=== PATIENT | female | born 1930 | race Two or more races ===

== ENCOUNTER 2017-07-03 04:20 | Inpatient (IN) | payer BC, OTHER ==
[~2017-07-03] VITALS: Ht 172.7 cm; Wt 58.6 kg
--- NOTE | 2017-07-03 04:22 | NUR ---
PT BRIB LAFD ROM C/O OF GENERALIZED WEAKNESS WITH COUGH X 1 WEEK. PT A/O X 2, BREATHING EVEN/UNLABORED, NO C/O PAIN AT THIS TIME.
[2017-07-03 05:11] LABS: CALCIUM, SERUM 9.6 mg/dL (8.5-10.1); CARBON DIOXIDE 27 mmol/L (21-32); CHLORIDE 107 mmol/L (98-107); CREATININE 0.7 mg/dL (0.6-1.3); GLUCOSE 137 mg/dL (74-106); POTASSIUM 4.1 mmol/L (3.5-5.1); SODIUM SERUM 144 mmol/L (136-145); UREA NITROGEN, BLOOD 11 mg/dL (7-18)
[2017-07-03 05:19] LABS: TROPONIN I < 0.017 ng/mL (0.00-0.056)
[2017-07-03 05:23] LABS: BASOPHILS # (AUTO) 0.1 /CMM (0.0-0.2); BASOPHILS % (AUTO) 0.8 % (0.0-2.0); HEMATOCRIT 47 % (33-45); HEMOGLOBIN 16.4 g/dL (11.5-14.8); LYMPHOCYTES # (AUTO) 0.4 /CMM (0.8-4.8); LYMPHOCYTES % (AUTO) 4.5 % (20.0-44.0); MEAN CORPUSCULAR HEMOGLOBIN 32 PG (26.0-33.0); MEAN CORPUSCULAR HGB CONC 35 g/dl (31.0-36.0); MEAN CORPUSCULAR VOLUME 91 fL (82-100); MONOCYTES # (AUTO) 0.4 /CMM (0.1-1.30); MONOCYTES % (AUTO) 4.9 % (2.0-12.0); NEUTROPHILS # (AUTO) 7.8 /CMM (1.8-8.9); NEUTROPHILS % (AUTO) 89.8 % (43.0-81.0); PLATELET COUNT (AUTO) 202 /CMM (150-450); RDW COEFFICIENT OF VARIATION 12.3 (11.5-15.0); RED BLOOD CELL COUNT(AUTO) 5.13 MIL/uL (4.0-5.2); WHITE BLOOD COUNT (AUTO) 8.8 K/uL (4.3-11.0)
[2017-07-03 05:24] LABS: ALANINE AMINOTRANSFERASE 27 U/L (12-78); ALBUMIN 3.7 g/dL (3.4-5.0); ALKALINE PHOSPHATASE 82 U/L (46-116); ASPARTATE AMINOTRANSFERASE 27 U/L (15-37); B-TYPE NATRIURETIC PEPTIDE 492 PG/ML (0-125); BILIRUBIN,DIRECT 0.1 mg/dL (0.0-0.2); BILIRUBIN,TOTAL 0.8 mg/dL (0.2-1.0); TOTAL PROTEIN, SERUM 7.6 g/dL (6.4-8.2)
--- NOTE | 2017-07-03 05:41 | NUR ---
PT LYING IN BED, AROUSABLE TO VOICE, FAMILY BEDSIDE, BREATHING UNLABORED, NSR ON LEAD RADIOLOGIC TECHNOLOGIST, NO C/O PAIN, WAITING ON LAB RESULTS
[2017-07-03] MEDS ORDERED: OSELTAMIVIR PHOSPHATE 75 MG CAPSULE PO SCH (07:00)
[2017-07-03] MEDS ORDERED: OSELTAMIVIR PHOSPHATE 75 MG CAPSULE ONE ×2 (07:14→18:42)
--- NOTE | 2017-07-03 07:20 | NUR ---
REPORT TO KEVIN REYES: PT SITTING UP IN BED, BREATHING EVEN/UNLABORED, NSR ON ETHOLOGIST, PT UPDATED ON PLAN OF CARE
--- NOTE | 2017-07-03 07:21 | NUR ---
RECEIVED REPORT FOR AILYN.
[2017-07-03] MEDS ORDERED: MAGNESIUM HYDROXIDE 30 ML UDC PO PRN (07:30)
[2017-07-03] MEDS ORDERED: ONDANSETRON HCL/PF 4 MG/2 ML VIAL IVP PRN (07:30)
[2017-07-03] MEDS ORDERED: IV NS 0.9% 1,000 ML IV PRN (07:30)
[2017-07-03] MEDS ORDERED: HYDROCODONE/APAP 5/325MG 1 EACH TABLET PO PRN (07:30)
[2017-07-03] MEDS ORDERED: ACETAMINOPHEN 325 MG TABLET PO PRN (07:30)
[2017-07-03] MEDS ORDERED: Z GUARD REMEDY 2 OZ OINT TP PRN (07:30)
[2017-07-03] MEDS ORDERED: ZOLPIDEM TARTRATE 5 MG TABLET PO PRN (07:30)
[2017-07-03] MEDS ORDERED: hydrALAZINE HCL IV 20 MG VIAL IV PRN (07:30)
--- NOTE | 2017-07-03 10:15 | NUR ---
PATIENT PULLED ON IV FROM LAC. SITE SECURED WITH GAUZE AND TAPE. MD INFORMED, STATING DOES NOT NEED NEW IV AT THIS TIME.
--- NOTE | 2017-07-03 18:20 | NUR ---
NEW IV STARTED ON LEFT WRIST, 20G. PATIENT STARTED ON IVF PER ADMITTING ORDERS.
[2017-07-03] MEDS: OSELTAMIVIR PHOSPHATE 75 MG CAPSULE PO SCH (18:50)
--- NOTE | 2017-07-03 19:15 | NUR ---
REPORT GIVEN TO ERENDIRA REYES FOR AILYN.
--- NOTE | 2017-07-03 20:45 | NUR ---
REPORT GIVEN TO ROBI ON [facility]
[2017-07-03 21:00] VITALS: BP 149/74
[2017-07-03 21:30] VITALS: BP 149/74
--- NOTE | 2017-07-03 21:30 | NUR ---
TELE CLINICAL RESOURCE DIRECTOR INITIAL NOTES RECEIVED PT FROM ER VIA REMIGIO ACCOMPANIED BY ER NURSE AND AND HER SON LEONOR. DX OF FLU. PT IS ALERT ORIENTED X2-3 AT THIS TIME, FOLLOWED SIMPLE INSTRUCTION. PER SON HER MOM LIKE GETTING STARTED DIMENTIA . FORGETFUL AT TIMES. NO SOB OR NO ACUTE DISTRESS NOTED AT THIS TIME. WITH IVF OF NS AT 75ML/HR INFUSING ON HER LEFT HAND PATENT AND INTACT. SKIN WARM AND DRY TO TOUCH, NO EDEMA NOTED. ORIENTED WHERE SHE AT AND HOW TO USED THE CALL LIGHT SYSTEM. SON LEONOR PROVIDE SOME INFORMATION BECAUSE HE'S THE ONE TAKING OF HER AND LIVED THEM TOGETHER. SINUS RHYTHM ON TELE MONITOR. VITAL SIGNS FF BP 149/74, PULSE 86, RESP 20, TEMP. 98.5 AND O2 SAT 95% IN ROOM AIR. KEPT HER WARM AND COMFORTABLE AT ALL TIMES. BED ALARM SET FOR PT SAFETY. PLACE CALL LIGHT AT REACH. WILL CONTINUE TO MONITOR.
[2017-07-04] VITALS (7 sets, daily range): BP systolic 122–146; BP diastolic 61–85
--- NOTE | 2017-07-04 01:58 | NUR ---
CHICKEN AND FISH BUTCHER/NOTES PT SLEEPING COMFORTABLY IN BED WITHOUT ANY ACUTE DISTRESS NOTED AT THIS TIME. RESPIRATION EVEN AND NON-LABORED. IVF STILL INFUSING. KEPT HER WARM AND COMFORTABLE AT ALL TIMES. BED ALARM SET FOR SAFETY. WILL CONTINUE TO MONITOR.
[2017-07-04 06:44] LABS: BASOPHILS % (AUTO) 0.4 % (0.0-2.0); EOSINOPHILS % (AUTO) 0.2 % (0.0-6.0); HEMATOCRIT 42 % (33-45); HEMOGLOBIN 14.5 g/dL (11.5-14.8); LYMPHOCYTES # (AUTO) 1.1 /CMM (0.8-4.8); LYMPHOCYTES % (AUTO) 19.6 % (20.0-44.0); MEAN CORPUSCULAR HEMOGLOBIN 32 PG (26.0-33.0); MEAN CORPUSCULAR HGB CONC 34 g/dl (31.0-36.0); MEAN CORPUSCULAR VOLUME 93 fL (82-100); MONOCYTES # (AUTO) 0.6 /CMM (0.1-1.30); MONOCYTES % (AUTO) 11.2 % (2.0-12.0); NEUTROPHILS # (AUTO) 3.7 /CMM (1.8-8.9); NEUTROPHILS % (AUTO) 68.6 % (43.0-81.0); PLATELET COUNT (AUTO) 187 /CMM (150-450); RDW COEFFICIENT OF VARIATION 12.8 (11.5-15.0); RED BLOOD CELL COUNT(AUTO) 4.53 MIL/uL (4.0-5.2); WHITE BLOOD COUNT (AUTO) 5.4 K/uL (4.3-11.0)
[2017-07-04 07:00] LABS: CARBON DIOXIDE 27 mmol/L (21-32); CHLORIDE 106 mmol/L (98-107); CREATININE 0.6 mg/dL (0.6-1.3); GLUCOSE 94 mg/dL (74-106); MAGNESIUM 2.1 mg/dL (1.8-2.4); POTASSIUM 3.7 mmol/L (3.5-5.1); SODIUM SERUM 139 mmol/L (136-145); UREA NITROGEN, BLOOD 12 mg/dL (7-18)
[2017-07-04 07:18] LABS: CHOLESTEROL 148 mg/dL (<200); HDL CHOLESTEROL 93 mg/dL (40-60); LDL 53 mg/dL (0-99); TRIGLYCERIDES 55 mg/dL (30-150)
--- NOTE | 2017-07-04 07:30 | NUR ---
RN OPENING NOTES RECEIVED PT. PT STABLE AND SLEEPING IN BED. NO S/S OF RESPIRATORY DISTRESS OR SOB. IV ACCESS LOCATED ON LEFT HAND 20 G INFUSING NS AT 75 ML/HR. SAFETY MEASURES IN PLACE, CALL LIGHT WITHIN REACH. WILL CONTINUE TO MONITOR.
--- NOTE | 2017-07-04 07:43 | NUR ---
TELE PRINCIPAL SOFTWARE ARCHITECT CLOSING NOTES PT IN BED QUIET AND CALMED AT THIS TIME. IVF STILL INFUSING ON HER LEFT HAND. SLEPT WELL AND STABLE ELISEO THE NIGHT SINCE SHE ADMITTED. MORNING CARE DONE . KEPT HER WARM AND COMFORTABLE AT ALL TIMES. BED ALARM SET FOR SAFETY. TELE SR PER MONITOR. VITAL SIGNS WNL. ISOLATION PRECAUTION IMPLEMENTED AND OBSERVED. ENDORSE TO AM NURSE FOR CONTINUITY OF CARE.
[2017-07-04] MEDS: OSELTAMIVIR PHOSPHATE 75 MG CAPSULE PO SCH ×2 (10:00→18:23)
--- NOTE | 2017-07-04 10:00 | NUR ---
RN NOTES PT AGITATED AND REFUSING IV FLUIDS.
--- NOTE | 2017-07-04 18:32 | NUR ---
RN CLOSING NOTES PT IN ROOM SITTING IN BEDSIDE CHAIR. NO S/S OF SOB. PT DENIES PAIN AT THIS TIME. PT HAS REFUSED IV FLUIDS THROUGHOUT THE DAY. REFUSED AFTERNOON TAMIFLU. AT 1800 S/S OF INCREASED AMS R/T DEMENTIA BEGAN. FREQUENTLY REORIENTING AND CALMING PT. ALL PT NEEDS ANTICIPATED AND MET. WILL ENDORSE TO AVIATION TECHNICIAN FOR AILYN.
--- NOTE | 2017-07-05 06:37 | NUR ---
MS RN NOTE PATIENT STABLE. RESTING IN BED. ALL NEEDS MET AND ATTENDED TO. BED LOCKED AND IN LOWEST POSITION. SIDE RAILS UP, CALL LIGHT WITHIN REACH. WILL ENDORSE TO DAY SHIFT FOR AILYN.
--- NOTE | 2017-07-05 07:38 | NUR ---
MS RN OPENING NOTES. PT WITH DROPLET PRECS R/T: INFLUENZA. RECEIVED PT SITTING OOB IN CHAIR A&0X2, CONVERSATIONAL WITH SOME CONFUSION. PT REPORTING NO PAIN. PT WITH IVC AT L HAND G#20 SALINE FLUSHED PATENT. BED IN LOWEST LOCKED POSITION WITH WITH HANDRAILSX2 AND CALL PHAN ON BED. PT BRIEFED ON TODAY'S POC, WILL REORIENTATE NEEDED, PT IS WITHOUT CONCERN OR COMPLAINT THIS TIME.
[2017-07-05 08:00] VITALS: BP 140/87
--- NOTE | 2017-07-05 10:04 | NUR ---
RN NOTES. PT REFUSING IV FLUIDS.
[2017-07-05] MEDS: OSELTAMIVIR PHOSPHATE 75 MG CAPSULE PO SCH ×2 (10:36→18:26)
[2017-07-05] MEDS ORDERED: AMOX-430 PO (12:14)
[2017-07-05 16:00] VITALS: BP 135/82
--- NOTE | 2017-07-05 19:30 | NUR ---
RN OPENING NOTES PATIENT IS SITTING ON THE CHAIR, ALERT AND ORIENTED X1, AGITATED AND WANDERING. SON PRESENT AT BEDSIDE. NO C/O PAIN AT THIS TIME. PATIENT NEEDS CONSTANT ATTENTION FOR SAFETY REORIENTATION. NO SOB NOTED. RESPIRATIONS EVEN AND UNLABORED. IV ACCESS AT L HAND G#20 SL PATENT AND INTACT, FLUSHING WELL WITH NS, NO REDNESS OR INFILTRATION NOTED. BED IN LOW AND LOCKED POSITION, SIDE RAILSX3. CALL LIGHT WITHIN EASY REACH. WILL CONTINUE TO MONITOR AND ASSESS DURING THE SHIFT.
--- NOTE | 2017-07-05 19:46 | NUR ---
RN CLOSING NOTES. PT A&0X1, PREDOMINANTLY UNSETTLED AND WANDERING. PT FREQUENTLY COMBATIVE AND IS [place] RISK. PT REQUIRING CONSTANT ATTENTION FOR SAFETY REORIENTATION. PT TOLERATING ROOM AIR WITHOUT SOB. PT REPORTING NO PAIN AND IS WITHOUT S/S OF PAIN. PT WITH IVC AT L HAND G#20 INTACT AND SL. BED IN LOWEST LOCKED POSITION WITH HANDRAILSX3 AND CALL PHAN WITHIN REACH. ALL DAY SHIFT DUTIES ATTENDED TO. PT WITHOUT CONCERN OR COMPLAINT. WILL ENDORSE TO NIGHT NURSE.
[2017-07-05 20:00] VITALS: BP 144/81
[2017-07-05 20:26] VITALS: BP 144/81
--- NOTE | 2017-07-06 06:58 | NUR ---
RN CLOSING NOTES PATIENT IS RESTING IN BED, ALERT AND ORIENTED X1, AGITATED AND CONFUSED. PATIENT TRIES TO GET OUT OF THE BED ALL THE TIME. PATIENT NEEDS CONSTANT ATTENTION FOR SAFETY REORIENTATION. NO SOB NOTED. RESPIRATIONS EVEN AND UNLABORED. IV ACCESS AT L HAND G#20 SL PATENT AND INTACT, INFUSING NS AT 75 ML/HR. NO REDNESS OR INFILTRATION NOTED. ALL NEEDS ARE MET AND MEDICATIONS GIVEN PER MD ORDER. BED IN LOW AND LOCKED POSITION, SIDE RAILSX3. CALL LIGHT WITHIN EASY REACH. WILL ENDORSE TO RN DAY SHIFT FOR AILYN.
[2017-07-06 08:00] VITALS: BP 148/79
--- NOTE | 2017-07-06 08:00 | NUR ---
m/s patient financial coordinator: initial assessment received pt in bed awake, alert and oriented x 1-2 with confusion and disorientation to time, place, and situation. reality orientation provided prn. no c/o pain or any discomfort. isolation precaution maintained. will continue to monitor. Addendum: 07/06/17 at 1831 by CAREY EASTMAN BLUEPRINT DUPLICATOR pt refused full body assessment.
--- NOTE | 2017-07-06 10:00 | NUR ---
m/s freight brake operator: notes pt up and about in room, redirected pt to back to her room due to droplet precaution. educated pt on droplet precaution, but pt is confused and disoriented to place and situation. reality orientation provided prn. will continue to monitor.
[2017-07-06] MEDS: OSELTAMIVIR PHOSPHATE 75 MG CAPSULE PO SCH ×2 (11:01→17:00)
--- NOTE | 2017-07-06 14:00 | NUR ---
m/s drug safety physician: notes pt pulled her iv to right hand/wrist area with no active bleeding noted.
--- NOTE | 2017-07-06 15:35 | NUR ---
m/s coin machine mechanic: notes dr. martin notified re: pt going [facility], just awaiting for authorization from her insurance per case management with order to continue home meds except for iv and tamiflu and start augmentin po at [facility]. order carried out. cn made aware.
--- NOTE | 2017-07-06 15:45 | NUR ---
m/s apparel pattern maker: notes rajesh (case management) called and received authorization for pt to go to [facility]. lazaro (son) notified, left message via voice mail re: d'c to [facility] at 1700 today. pt made aware, but still pt has periods of confusion. reality orientation provided prn. will continue to monitor.
[2017-07-06 16:00] VITALS: BP 144/84
--- NOTE | 2017-07-06 16:00 | NUR ---
m/s optimization specialist: notes report given to jennifer flores) at [facility] for continuity of care.
--- NOTE | 2017-07-06 17:50 | NUR ---
m/s hydrant setter: notes son here and aware that pt is going to [facility].
--- NOTE | 2017-07-06 18:10 | NUR ---
m/s com writer: notes ambulance here and report given to one of the crew.
--- NOTE | 2017-07-06 18:31 | NUR ---
m/s car servicer: discharged discharged to [facility] via ambulance in stable condition accompanied by 2 crew with son following to go to [facility].
== END 2017-07-06 18:36 | DRG 193 ==
LOC: ER 04:22 → TELE 06:23 → UNDOADMIN 06:23 → TELE 21:08 → MED 07-04 18:01
PROVIDERS: ADMIT Nurse Practitioner Acute Care; ATTEND Nurse Practitioner Acute Care
DX: J10.08 Influenza due to other identified influenza virus with other specified pneumonia (principal); G93.41 Metabolic encephalopathy; R53.2 Functional quadriplegia; D68.59 Other primary thrombophilia; F03.90 Unspecified dementia, unspecified severity, without behavioral disturbance, psychotic disturbance, mood disturbance, and anxiety; J15.9 Unspecified bacterial pneumonia; E16.2 Hypoglycemia, unspecified; R73.9 Hyperglycemia, unspecified; M19.90 Unspecified osteoarthritis, unspecified site
CPT/HCPCS: 36415; 71045; 80048-TC; 80061-TC; 80076-TC; 83605-TC; 83735-TC; 83880; 84100-TC; 84484-TC; 85025-TC; 85378-TC; 87040-TC; 87081-TC; 87400; 97116-TC; 97530-TC; A4606; J7030; Z7610